=== PATIENT | male | born 1990 | race Caucasian/White ===

== ENCOUNTER 2016-09-03 15:28 | Emergency (ER) | payer OTHER ==
[2016-09-03 16:13] LABS: MANUAL DIFF NEEDED? NO; URINE CULTURE PL NEEDED? NO; URINE SOURCE CLEAN CATCH
[2016-09-03 16:15] LABS: BASO% 0.4 % (0.0-0.8); EOS# 0.24 X1000 (0.0-0.7); EOS% 2.5 % (0.0-10.0); HEMATOCRIT 43.9 % (42.0-52.0); HEMOGLOBIN 15.7 g/dL (14.0-18.0); IMM GRAN# 0.04 X1000 (0.0-0.04); IMM GRAN% 0.4 % (0.0-0.5); LYMPH# 2.84 X1000 (1.2-3.4); LYMPH% 29.3 % (20.5-51.1); MCH 27.4 PG (27-31); MCHC 35.8 g/dL (33-37); MCV 76.5 FL (81-99); MONO# 0.89 X1000 (0.11-0.59); MONO% 9.2 % (1.7-9.3); MPV 10.9 FL (7.4-10.4); NEUT% 58.2 % (42.2-75.2); PLT 296 X1000 (130-400); RBC 5.74 XMIL (4.7-6.1)
--- NOTE | 2016-09-03 16:18 | PROVIDER DOCUMENTATION ---
HPI-Abdominal Pain/GI Problem - General Chief Complaint: Abdominal Pain Stated Complaint: POSS APPENDIX Time Seen by Provider: 09/03/16 15:52 Source: patient Allergies/Adverse Reactions: Patient Allergies Allergy/AdvReac Type Severity Reaction Status Date / Time No Known Allergies Allergy Verified 09/03/16 15:41 - History of Present Illness-ABD Nature of Presenting Problems: 26 y/o WM c/o RLQ pain since , with diarrhea twice a day since then. pain does not radiate. has nasuea every once in awhile, no vomiting, decreased appetite, fevers, chills or weight loss. Became concerned because when he woke up this morning had blood around his belly button. Denies blood in stools. Denies trauma to the umbilicus. Denies dysuria, hematuria, frequency or urgency Review of Systems - Adult - REVIEW OF SYSTEMS - ADULT Constitutional: reports: no symptoms reported. denies: chills, fever, fatique Eyes: reports: no symptoms reported. denies: blurred vision, double vision, eye pain Ears, Nose, Mouth & Throat: reports: no symptoms reported. denies: ear pain, nose pain, throat pain Cardiovascular: reports: no symptoms reported. denies: chest pain, palpitations Respiratory: reports: no symptoms reported. denies: cough, shortness of breath , wheezing Gastrointestinal: reports: see HPI, abdominal pain, diarrhea. denies: nausea, poor appetite, vomiting Genitourinary: reports: no symptoms reported. denies: dysuria, discharge, frequency, incontinence Musculoskeletal: reports: no symptoms reported. denies: bone pain, back pain, muscle aches Integumentary: reports: no symptoms reported. denies: rash Neurological: reports: no symptoms reported. denies: headache/migraines Psychiatric: reports: no symptoms reported Endocrine: reports: no symptoms reported Hematologic/Lymphatic: reports: no symptoms reported Allergic/Immunologic: reports: no symptoms reported All Other Systems: Reviewed and Negative Past History - Adult - PAST MEDICAL HISTORY-ADULT Review of Records: reports: Old Records Reviewed, Nursing Assessment Review, Medications Reviewed, Social history reviewed & non-contributory. Major Childhood Illnesses: reports: denies history Cardiovascular: reports: denies history Respiratory: reports: denies history Gastrointestinal: reports: denies history Genitourinary: reports: denies history Musculoskeletal: reports: denies history Neurological: reports: denies history Endocrine/Immune: reports: denies history Other Conditions: reports: denies history - PRIOR SURGERIES/PROCEDURES Surgical/Procedure History: reports: reviewed, not pertinent - IMMUNIZATION STATUS Childhood Immunizations: See Nurse Assessment Flu Vaccine: See Nurse Assessment - FAMILY HISTORY Family History: reviewed, not pertinent - SOCIAL HISTORY Smoking: denies Substance Use: none/never Alcohol Use Frequency: never Physical Exam-General - PHYSICAL EXAM-ADULT Initial Vital Signs Reviewed: Yes - CONSTITUTIONAL General Appearance: appears well, alert, no apparent distress - EYES Eyes: PERRL/EOMI, pink conjunctivae - HEAD, EARS, NOSE, MOUTH & THROAT HENMT: normocephalic/atraumatic, moist mucous membranes - NECK Neck: non-tender, full range of motion, supple, normal inspection. negative: lymphadenopathy - RESPIRATORY Respiratory: chest non-tender, lungs clear, normal breath sounds, no pleuratic chest pain, no respiratory distress, no accessory muscle use. negative: respiratory distress, decreased breath sounds, accessory muscle use, crackles, rales, rhonchi, wheezing - CARDIOVASCULAR Cardiovascular: normal peripheral pulses, regular rate, rhythm, no edema - GASTROINTESTINAL (ABDOMEN) Abdominal Exam: normal bowel sounds, non tender, soft, no organomegaly, no pulsatile mass. negative: abdominal bruit, abnormal bowel sounds, distended, guarding, rigid, rebound, tenderness - LYMPHATIC Lymphatic: no adenopathy - MUSCULOSKELETAL Extremity: normal gait - SKIN Integumentary: normal color, normal turgor, warm/dry - NEUROLOGIC Neurologic: grossly normal, no motor/sensory deficits - PSYCHIATRIC Psych/Mental Status: normal mood/affect, normal thought content, normal thought process, oriented x 3 Progress - PLAN OF CARE/RESULTS Progress/Plan/Lab Results: Vital Signs Temp Pulse Resp BP Pulse Ox 09/03/16 15:37 97.8 F 90 18 166/90 100 No Known Allergies Allergy (Verified 09/03/16 15:41) No Home Medications 09/03/16 Dietary Diet NPO Start ThuSep 03 1535 Laboratory 09/03/16 09/03/16 09/03/16 15:57 15:57 15:57 WBC 9.68 RBC 5.74 Hgb 15.7 Hct 43.9 MCV 76.5 L MCH 27.4 MCHC 35.8 RDW Std Deviation 13.2 Plt Count 296 MPV 10.9 H Immature Gran % (Auto) 0.4 Neut % (Auto) 58.2 Lymph % (Auto) 29.3 Ralls % (Auto) 9.2 Eos % (Auto) 2.5 Baso % (Auto) 0.4 Immature Gran # (Auto) 0.04 Neut # (Auto) 5.63 Lymph # (Auto) 2.84 Ralls # (Auto) 0.89 H Eos # (Auto) 0.24 Baso # (Auto) 0.04 Sodium 141 Potassium 3.7 Chloride 99 Carbon Dioxide 27 Anion Gap 15 BUN 14 Creatinine 1.1 Estimated GFR/1.73 m2 > 60 BUN/Creatinine Ratio 13 Glucose 86 Calculated Osmolality 281 Calcium 9.9 Total Bilirubin 0.50 AST 30 ALT 36 Alkaline Phosphatase 76 Total Protein 8.4 H Albumin 5.2 H Globulin 3.0 Albumin/Globulin Ratio 2.0 Amylase 45 Lipase 28 Urine Source CLEAN CATCH Urine Color YELLOW Urine Clarity CLEAR Urine pH 6.5 Ur Specific [place] 1.015 Urine Protein NEGATIVE Urine Ketones TRACE Urine Blood NEGATIVE Urine Nitrite NEGATIVE Urine Bilirubin NEGATIVE Urine Urobilinogen NORMAL Urine Microscopic RBC Not Reportable Urine WBC TRACE A Urine Microscopic WBC <10 Urine Glucose NEGATIVE Orders Category Date Time Status NPO Diet 09/03/16 15:35 Active flat [ABDOMEN FLAT/UPRIGHT] [RAD] Stat Exams 09/03/16 16:09 Draft AMYLASE [CHEM] Stat Lab 09/03/16 15:57 Completed CBC WITH ELECTRONIC DIFF [HEME] Stat Lab 09/03/16 15:57 Completed COMPREHENSIVE METABOLIC PANEL [CHEM] Stat Lab 09/03/16 15:57 Completed LIPASE [CHEM] Stat Lab 09/03/16 15:[address] W/POSS RFLX CULT [URINALYSIS] Stat Lab 09/03/16 15:57 Completed Ondansetron Odt [Zofran Odt] Med 09/03/16 16:30 Discontinued 4 mg PO NOW ONE - XRAY 1 XRAY Study: Abdomen Impression: Normal (moderate constipation, otherwise, nad per radiology) Departure - Departure Time of Disposition Order: 17:25 DIAGNOSIS: Abdominal pain Qualifiers: Abdominal location: right lower quadrant Qualified Code(s): R10.31 - Right lower quadrant pain Disposition: HOME 01 Certified Medical Emergency: Emergent Condition: Stable Additional Instructions: Follow up with Dr. Poe, GI ED Follow Up Instructions: You have been treated by a care provider in the Emergency Department. These instructions are being provided to you so you can have an understanding of how to care for yourself upon discharge. Upon discharge from the Emergency Department, you are responsible for making arrangements for follow-up care by a physician of your choice. Take all prescribed medications as directed. Return to the Emergency Department immediately for any new or worsening symptoms. You may call the Physician Referral phone number at [phone] to obtain a list of Physicians who are taking new patients. Prescriptions: Dicyclomine [Bentyl] 10 mg PO TID AC #30 capsule Ondansetron [Zofran] 4 mg PO Q6H PRN PRN #20 tablet PRN Reason: Nausea Referrals: None,PCP [Primary Care Provider] - Mirza Poe MD [STAFF PHYSICIAN] - Attestation - Physician/ Mid-level Attestation Patient care was provided by Mid-level provider (PATIENT CASE MANAGER/PA):: Yes Mid-level provider:: Maddison Rosa Mid-level documentation review:: The Mid-level provider documentation, treatment plan and medical decision making was reviewed by the physician who agrees with all treatment and medical decision making by the P.
[2016-09-03] MEDS ORDERED: ZOFRAN ODT PO ONE (16:30)
[2016-09-03 16:40] LABS: BILIRUBIN URINE NEGATIVE (NEGATIVE); BLOOD URINE NEGATIVE (NEGATIVE); CLARITY CLEAR (CLEAR); COLOR YELLOW; GLUCOSE URINE NEGATIVE (NEGATIVE); LEUKOCYTES URINE TRACE (NEGATIVE); NITRITE URINE NEGATIVE (NEGATIVE); PH URINE 6.5; PROTEIN URINE NEGATIVE (NEGATIVE); SP GRAVITY URINE 1.015; UROBILINOGEN URINE NORMAL
[2016-09-03 16:41] LABS: URINE WBC <10 /HPF (<10)
--- NOTE | 2016-09-03 16:50 | Diag Imaging Result Document ---
PROCEDURE NAME: ABDOMEN FLAT/UPRIGHT - 09/03/2016 TWO-VIEW ABDOMEN: INDICATION: Right lower quadrant pain. FINDINGS: Supine and erect views of the abdomen reveal moderate constipation. No organomegaly or mass effect is appreciated. There are no abnormal calcifications. No evidence for pneumoperitoneum. IMPRESSION: Moderate constipation.
[2016-09-03 16:59] LABS: AGAP 15; ALBUMIN 5.2 g/dL (3.5-5.0); ALKALINE PHOSPHATASE 76 U/L (32-122); AMYLASE 45 U/L (20-200); BUN 14 mg/dL (8-22); CALCIUM 9.9 mg/dL (8.8-10.2); CHLORIDE 99 mmol/L (98-107); COSMO 281; GOT 30 U/L (10-34); GPT 36 U/L (10-44); LIPASE 28 U/L (13-60); POTASSIUM 3.7 mmol/L (3.5-5.1); SODIUM 141 mmol/L (136-145); TCO2 27 mmol/L (25-35); TOTAL PROTEIN 8.4 g/dL (6.3-8.3)
[2016-09-03 17:46] VITALS: BP 128/77
== END 2016-09-03 17:44 | disposition home or self-care (01) ==
LOC: P.ED 15:28
DX: R10.31 Right lower quadrant pain (principal); R19.7 Diarrhea, unspecified; R11.0 Nausea
CPT/HCPCS: 74020; 80053; 81001; 82150; 83690; 85025; 99284